=== PATIENT | female | born 1965 | race American Indian/Alaskan Native ===

== ENCOUNTER 2017-03-11 05:36 | Emergency (ER) | payer SELFPAY ==
[2017-03-11] MEDS ORDERED: ASPIRIN PO ONE (05:58)
[2017-03-11 07:24] LABS: Basophils # (Auto) 0.1 K/mm3 (0.0-0.1); Basophils % (Auto) 0.8 % (0.0-1.8); Eosinophils # (Auto) 0.2 K/mm3 (0.0-0.4); Eosinophils % (Auto) 2.5 % (0.0-4.3); Hematocrit 42.2 % (30.3-42.9); Hemoglobin 14.1 gm/dl (10.1-14.3); Lymphocytes # (Auto) 2.9 K/mm3 (1.2-5.4); Lymphocytes % (Auto) 41.5 % (13.4-35.0); Mean Corpuscular HGB Conc 34 % (30-34); Mean Corpuscular Hemoglobin 28 pg (28-32); Mean Corpuscular Volume 83 fl (79-97); Monocytes # (Auto) 0.4 K/mm3 (0.0-0.8); Monocytes % (Auto) 5.7 % (0.0-7.3); Platelet Count 347 K/mm3 (140-440); Red Blood Count 5.12 M/mm3 (3.65-5.03); Red Cell Distribution Width 14.8 % (13.2-15.2)
[2017-03-11 07:43] LABS: BUN/Creatinine Ratio 22; Blood Urea Nitrogen 20 mg/dL (7-17); Calcium 9.4 mg/dL (8.4-10.2); Hemolysis Index 9
[2017-03-11] MEDS ORDERED: ZOFRAN IV ONE (09:21)
[2017-03-11] MEDS ORDERED: MORPHINE IV ONE (09:21)
--- NOTE | 2017-03-11 09:27 | Emergency Department Report ---
HPI - General Chief Complaint: Chest Pain Time Seen by Provider: 03/11/17 09:20 - HPI HPI: [facility] [place] The patient is a 51-year-old female presenting with a chief complaint chest pain. The patient states 8 hours ago surgical sharp left-sided chest pain associated with shortness of breath, diaphoresis and pleurisy. Patient denies nausea or vomiting. The patient states 8 days ago she took a 17 [address] from [place] to [place]. The patient has a history of breast cancer and last received chemotherapy one month ago. Patient states she's never had a cardiac catheterization Location: Left chest Duration: 8 hours Quality: Sharp Severity: 11/27 Modifying factors: [see above] Context: [see above] Mode of transportation: [not driving] ED Past Medical Hx - Past Medical History Previous Medical History?: Yes Hx Hypertension: Yes Hx of Cancer: Yes (breast) - Surgical History Past Surgical History?: Yes Hx Appendectomy: Yes - Family History Family history: no significant - Social History Smoking Status: Never Smoker Substance Use Type: None (denies illicit drug use) - Medications Home Medications: Home Medications Medication Instructions Recorded Confirmed Last Taken Type ALPRAZolam [Xanax TAB] 2 mg PO BID 03/11/17 03/11/17 Unknown History Doxepin HCl 100 mg PO HS 03/11/17 03/11/17 Unknown History Gabapentin [Neurontin] 800 mg PO TID 03/11/17 03/11/17 Unknown History Meloxicam 15 mg PO QDAY 03/11/17 03/11/17 Unknown History Venlafaxine HCl [Venlafaxine ER] 150 mg PO QDAY 03/11/17 03/11/17 Unknown History Zolpidem [Ambien] 10 mg PO QHS 03/11/17 03/11/17 Unknown History cloNIDine [Catapres] 0.1 mg PO BID 03/11/17 03/11/17 Unknown History hydrOXYzine PAMOATE [Vistaril] 50 mg PO TID 03/11/17 03/11/17 Unknown History oxyCODONE /ACETAMINOPHEN [Percocet 1 tab PO Q8HR PRN 03/11/17 03/11/17 Unknown History 5/325] ED Review of Systems ROS: Stated complaint: CHEST PAIN,HIGH BLOOD PRESSURE Other details as noted in HPI Constitutional: diaphoresis Respiratory: shortness of breath Cardiovascular: chest pain Gastrointestinal: denies: nausea, vomiting Physical Exam - Physical Exam Vital Signs: Vital Signs 03/11/17 05:53 Temperature 98.2 F Pulse Rate 71 Respiratory 18 Rate Blood Pressure 182/93 O2 Sat by Pulse 99 Oximetry Physical Exam: GENERAL: The patient is well-developed well-nourished female sitting in chair not appearing to be in acute distress HEENT: Normocephalic. Atraumatic. Extraocular motions are intact. Patient has moist mucous membranes. NECK: Trachea midline CHEST/LUNGS: Clear to auscultation. There is no respiratory distress noted. HEART/CARDIOVASCULAR: Regular. There is no tachycardia. There is no gallop rub or murmur. ABDOMEN: Abdomen is soft, nontender. Patient has normal bowel sounds. There is no abdominal distention. SKIN: There is no rash. There is no edema. There is no diaphoresis. NEURO: The patient is awake, alert, and oriented. The patient is cooperative. The patient has normal speech MUSCULOSKELETAL: There is no evidence of acute injury. ED Course Vital Signs 03/11/17 05:53 Temperature 98.2 F Pulse Rate 71 Respiratory 18 Rate Blood Pressure 182/93 O2 Sat by Pulse 99 Oximetry - Reevaluation(s) Reevaluation #1: 03/11/17 11:57 Informed by nursing (Maria Eugenia) that the patient has walked out of the hospital ED Medical Decision Making - Lab Data Result diagrams: 03/11/17 07:03 03/11/17 07:03 Laboratory Tests 03/11/17 03/11/17 03/11/17 06:00 07:03 07:03 WBC 6.9 RBC 5.12 H Hgb 14.1 Hct 42.2 MCV 83 MCH 28 MCHC 34 RDW 14.8 Plt Count 347 Lymph % (Auto) 41.5 H [place] % (Auto) 5.7 Eos % (Auto) 2.5 Baso % (Auto) 0.8 Lymph # 2.9 [place] # 0.4 Eos # 0.2 Baso # 0.1 Seg Neutrophils % 49.5 Seg Neutrophils # 3.4 Sodium 143 Potassium 3.2 L Chloride 102.5 Carbon Dioxide 26 Anion Gap 18 BUN 20 H Creatinine 0.9 Estimated GFR > 60 BUN/Creatinine Ratio 22 Glucose 127 H Calcium 9.4 Troponin T < 0.010 < 0.010 - EKG Data -: EKG Interpreted by Me EKG shows normal: sinus rhythm Rate: normal - EKG Data When compared to previous EKG there are: previous EKG unavailable Interpretation: nonspecific ST-T wave daniel (T-wave inversions in leads 2, 3, aVF , V4, V5) - Differential Diagnosis PE, ACS, pneumonia, pleurisy Critical care attestation.: If time is entered above; I have spent that time in minutes in the direct care of this critically ill patient, excluding procedure time. ED Disposition Clinical Impression: Chest pain, Hypokalemia Disposition: ELOPED Is pt being admited?: Yes Does the pt Need Aspirin: Yes Condition: Undetermined Instructions: Chest Pain (ED) Referrals: PRIMARY CARE,MD [Primary Care Provider] - 3-5 Days
[2017-03-11 10:44] VITALS: BP 173/90
[2017-03-11] MEDS ORDERED: NITRO-BID 2% TP ONE (11:08)
[2017-03-11] MEDS ORDERED: K-DUR PO ONE (11:59)
== END 2017-03-11 11:40 | disposition left against medical advice (07) ==
LOC: ED 05:36
DX: R07.89 Other chest pain (principal); E87.6 Hypokalemia; I10 Essential (primary) hypertension; C50.919 Malignant neoplasm of unspecified site of unspecified female breast; C79.9 Secondary malignant neoplasm of unspecified site; Z90.49 Acquired absence of other specified parts of digestive tract
CPT/HCPCS: 36415; 80048; 84484; 85025; 93005; 93010; 96374; J2270; J2405

== ENCOUNTER 2017-03-27 22:21 | Inpatient (IN) | payer SELFPAY ==
[2017-03-27] MEDS ORDERED: NACL 0.9% 1000 ML 1,000 ML IV ONE ×2 (22:44→22:45)
[2017-03-27 23:39] LABS: Basophils % (Auto) 0.3 % (0.0-1.8); Eosinophils % (Auto) 0.2 % (0.0-4.3); Hematocrit 41.9 % (30.3-42.9); Lymphocytes # (Auto) 1.9 K/mm3 (1.2-5.4); Lymphocytes % (Auto) 30.9 % (13.4-35.0); Mean Corpuscular HGB Conc 33 % (30-34); Mean Corpuscular Hemoglobin 28 pg (28-32); Mean Corpuscular Volume 82 fl (79-97); Monocytes # (Auto) 0.4 K/mm3 (0.0-0.8); Monocytes % (Auto) 6.2 % (0.0-7.3); Platelet Count 335 K/mm3 (140-440); Red Cell Distribution Width 15.6 % (13.2-15.2)
[2017-03-27 23:52] LABS: Alanine Aminotransferase 14 units/L (7-56); Albumin 4.3 g/dL (3.9-5); BUN/Creatinine Ratio 14; Blood Urea Nitrogen 18 mg/dL (7-17); Calcium 10.2 mg/dL (8.4-10.2); Hemolysis Index 0
[2017-03-27 23:54] LABS: Creatine Kinase MB 2.7 ng/mL (0.0-4.0)
[2017-03-27] MEDS ORDERED: PERCOCET 5/325 PO ONE (23:58)
[2017-03-28] LABS: INR 0.92 (0.87-1.13); Partial Thromboplastin Time 25.9 Sec. (24.2-36.6)
[2017-03-28] MEDS ORDERED: K-DUR PO ONE (00:14)
--- NOTE | 2017-03-28 01:09 | Emergency Department Report ---
ED General Adult HPI - General Chief complaint: Chest Pain Stated complaint: SYNCOPE Time Seen by Provider: 03/27/17 23:46 Source: EMS Mode of arrival: Stretcher Limitations: Other - History of Present Illness Initial comments: 51-year-old female with a past medical history of breast cancer diagnosed in 2013 and hypertension presents to the hospital with complaints of generalized body aches which included chest and back pain. Patient ran out of all her medications weeks ago. Include her BP medications, pain medication, and Xanax. Patient states she has been on Xanax daily for at least 2 years. Patient recently relocated here from [place] and does not have any current physician. She last received chemotherapy for breast cancer in January and does not have a local oncologist. Patient presented here in March 11 with similar complaints as per patient left prior to completion of evaluation and treatment. Patient denies cough, fever, abdominal pain, dysuria. Poor by mouth intake reported. Severity scale (0 -10): 10 - Related Data Home Medications Medication Instructions Recorded Confirmed Last Taken ALPRAZolam [Xanax TAB] 2 mg PO BID 03/11/17 03/11/17 Unknown Doxepin HCl 100 mg PO HS 03/11/17 03/11/17 Unknown Gabapentin [Neurontin] 800 mg PO TID 03/11/17 03/11/17 Unknown Meloxicam 15 mg PO QDAY 03/11/17 03/11/17 Unknown Venlafaxine HCl [Venlafaxine ER] 150 mg PO QDAY 03/11/17 03/11/17 Unknown Zolpidem [Ambien] 10 mg PO QHS 03/11/17 03/11/17 Unknown cloNIDine [Catapres] 0.1 mg PO BID 03/11/17 03/11/17 Unknown hydrOXYzine PAMOATE [Vistaril] 50 mg PO TID 03/11/17 03/11/17 Unknown oxyCODONE /ACETAMINOPHEN [Percocet 1 tab PO Q8HR PRN 03/11/17 03/11/17 Unknown 5/325] Allergies Allergy/AdvReac Type Severity Reaction Status Date / Time No Known Allergies Allergy Verified 03/11/17 05:57 ED Review of Systems ROS: Stated complaint: SYNCOPE Other details as noted in HPI Comment: All other systems reviewed and negative Other: Constitutional: No fevers chills Eyes: No eye pain visual changes ENT: No ear pain or throat pain Neck: Denies pain Respiratory: Denies cough wheezing shortness of breath Cardiovascular: Denies palpitations, syncope GI: Denies abdominal pain, nausea, vomiting, diarrhea : Denies dysuria Musculoskeletal: as per hpi Skin: Denies rash, lesions, erythema Neurologic: Denies headache, numbness, weakness Psychiatric: Denies suicidal ideation, hallucinations ED Past Medical Hx - Past Medical History Previous Medical History?: Yes Hx Hypertension: Yes Hx of Cancer: Yes (breast) - Surgical History Hx Appendectomy: Yes - Social History Smoking Status: Never Smoker Substance Use Type: None (denies illicit drug use) - Medications Home Medications: Home Medications Medication Instructions Recorded Confirmed Last Taken Type ALPRAZolam [Xanax TAB] 2 mg PO BID 03/11/17 03/11/17 Unknown History Doxepin HCl 100 mg PO HS 03/11/17 03/11/17 Unknown History Gabapentin [Neurontin] 800 mg PO TID 03/11/17 03/11/17 Unknown History Meloxicam 15 mg PO QDAY 03/11/17 03/11/17 Unknown History Venlafaxine HCl [Venlafaxine ER] 150 mg PO QDAY 03/11/17 03/11/17 Unknown History Zolpidem [Ambien] 10 mg PO QHS 03/11/17 03/11/17 Unknown History cloNIDine [Catapres] 0.1 mg PO BID 03/11/17 03/11/17 Unknown History hydrOXYzine PAMOATE [Vistaril] 50 mg PO TID 03/11/17 03/11/17 Unknown History oxyCODONE /ACETAMINOPHEN [Percocet 1 tab PO Q8HR PRN 03/11/17 03/11/17 Unknown History 5/325] ED Physical Exam - General Limitations: Other - Other Other exam information: General: Alert Head exam: Atraumatic, normocephalic Eyes exam: Normal appearance ENT: Moist mucous membrane, normal oropharynx Neck exam: Normal inspection, full range of motion, no meningismus nontender Respiratory exam: Clear to auscultation bilateral, no wheezes, rales, crackles. Anterior chest wall tenderness Cardiovascular: Tachycardic regular rhythm Abdomen: Soft, nondistended, and nontender, with normal bowel sounds, no rebound, or guarding Extremity: Full range of motion normal inspection no deformity, no calf tenderness or edema Back: Normal Inspection, full range of motion, generalized back tenderness Neurologic: Alert, oriented x3, cranial nerves intact, no motor or sensory deficit Psychiatric: Patient appears to be in distress secondary appear writhing around in the bed Skin: Warm, dry, intact ED Course Vital Signs 03/27/17 03/27/17 03/27/17 22:33 22:45 23:00 Temperature Pulse Rate 111 H 101 H 101 H Respiratory 24 20 19 Rate Blood Pressure 91/52 75/41 O2 Sat by Pulse 90 Oximetry 03/27/17 03/27/17 03/27/17 23:15 23:17 23:30 Temperature Pulse Rate 102 H 97 H 99 H Respiratory 19 20 16 Rate Blood Pressure 80/49 80/49 78/56 O2 Sat by Pulse 97 98 96 Oximetry 03/27/17 03/28/17 03/28/17 23:45 00:00 00:15 Temperature Pulse Rate 100 H 97 H 96 H Respiratory 22 16 19 Rate Blood Pressure 100/41 105/47 111/54 O2 Sat by Pulse 98 99 96 Oximetry 03/28/17 03/28/17 03/28/17 00:31 00:53 00:59 Temperature 99.9 F H Pulse Rate 90 Respiratory 15 Rate Blood Pressure 107/53 111/73 O2 Sat by Pulse 98 100 Oximetry 03/28/17 01:00 Temperature Pulse Rate Respiratory Rate Blood Pressure 125/61 O2 Sat by Pulse 95 Oximetry - Reevaluation(s) Reevaluation #1: 03/28/17 01:36 Patient feeling better after Percocet and vitals improved after IV fluids ED Medical Decision Making - Lab Data Result diagrams: 03/27/17 22:58 03/27/17 22:58 Lab Results 03/27/17 03/27/17 03/27/17 Range/Units 22:58 22:58 22:58 WBC 6.2 (4.5-11.0) K/mm3 RBC 5.10 H (3.65-5.03) M/mm3 Hgb 14.0 (10.1-14.3) gm/dl Hct 41.9 (30.3-42.9) % MCV 82 (79-97) fl MCH 28 (28-32) pg MCHC 33 (30-34) % RDW 15.6 H (13.2-15.2) % Plt Count 335 (140-440) K/mm3 Lymph % (Auto) 30.9 (13.4-35.0) % [place] % (Auto) 6.2 (0.0-7.3) % Eos % (Auto) 0.2 (0.0-4.3) % Baso % (Auto) 0.3 (0.0-1.8) % Lymph # 1.9 (1.2-5.4) K/mm3 [place] # 0.4 (0.0-0.8) K/mm3 Eos # 0.0 (0.0-0.4) K/mm3 Baso # 0.0 (0.0-0.1) K/mm3 Seg Neutrophils % 62.4 (40.0-70.0) % Seg Neutrophils # 3.8 (1.8-7.7) K/mm3 PT 12.8 (12.2-14.9) Sec. INR 0.92 (0.87-1.13) APTT 25.9 (24.2-36.6) Sec. VBG pH (7.320-7.420) Sodium 143 (137-145) mmol/L Potassium 2.8 L* (3.6-5.0) mmol/L Chloride 96.7 L (98-107) mmol/L Carbon Dioxide 24 (22-30) mmol/L Anion Gap 25 mmol/L BUN 18 H (7-17) mg/dL Creatinine 1.3 H (0.7-1.2) mg/dL Estimated GFR 52 ml/min BUN/Creatinine Ratio 14 % Glucose 201 H (65-100) mg/dL Lactic Acid (0.7-2.0) mmol/L Calcium 10.2 (8.4-10.2) mg/dL Magnesium 2.00 (1.7-2.3) mg/dL Total Bilirubin 0.40 (0.1-1.2) mg/dL AST 13 (5-40) units/L ALT 14 (7-56) units/L Alkaline Phosphatase 123 (35-129) units/L Total Creatine Kinase (30-135) units/L CK-MB (CK-2) (0.0-4.0) ng/mL CK-MB (CK-2) Rel Index (0-4) Troponin T (0.00-0.029) ng/mL Total Protein 7.9 (6.3-8.2) g/dL Albumin 4.3 (3.9-5) g/dL Albumin/Globulin Ratio 1.2 % Plasma/Serum Alcohol (0-0.07) % 03/27/17 03/27/17 03/27/17 Range/Units 22:58 22:58 22:58 WBC (4.5-11.0) K/mm3 RBC (3.65-5.03) M/mm3 Hgb (10.1-14.3) gm/dl Hct (30.3-42.9) % MCV (79-97) fl MCH (28-32) pg MCHC (30-34) % RDW (13.2-15.2) % Plt Count (140-440) K/mm3 Lymph % (Auto) (13.4-35.0) % [place] % (Auto) (0.0-7.3) % Eos % (Auto) (0.0-4.3) % Baso % (Auto) (0.0-1.8) % Lymph # (1.2-5.4) K/mm3 [place] # (0.0-0.8) K/mm3 Eos # (0.0-0.4) K/mm3 Baso # (0.0-0.1) K/mm3 Seg Neutrophils % (40.0-70.0) % Seg Neutrophils # (1.8-7.7) K/mm3 PT (12.2-14.9) Sec. INR (0.87-1.13) APTT (24.2-36.6) Sec. VBG pH 7.454 H (7.320-7.420) Sodium (137-145) mmol/L Potassium (3.6-5.0) mmol/L Chloride (98-107) mmol/L Carbon Dioxide (22-30) mmol/L Anion Gap mmol/L BUN (7-17) mg/dL Creatinine (0.7-1.2) mg/dL Estimated GFR ml/min BUN/Creatinine Ratio % Glucose (65-100) mg/dL Lactic Acid 2.60 H* (0.7-2.0) mmol/L Calcium (8.4-10.2) mg/dL Magnesium (1.7-2.3) mg/dL Total Bilirubin (0.1-1.2) mg/dL AST (5-40) units/L ALT (7-56) units/L Alkaline Phosphatase (35-129) units/L Total Creatine Kinase (30-135) units/L CK-MB (CK-2) (0.0-4.0) ng/mL CK-MB (CK-2) Rel Index (0-4) Troponin T (0.00-0.029) ng/mL Total Protein (6.3-8.2) g/dL Albumin (3.9-5) g/dL Albumin/Globulin Ratio % Plasma/Serum Alcohol < 0.01 (0-0.07) % 03/27/17 Range/Units 22:58 WBC (4.5-11.0) K/mm3 RBC (3.65-5.03) M/mm3 Hgb (10.1-14.3) gm/dl Hct (30.3-42.9) % MCV (79-97) fl MCH (28-32) pg MCHC (30-34) % RDW (13.2-15.2) % Plt Count (140-440) K/mm3 Lymph % (Auto) (13.4-35.0) % [place] % (Auto) (0.0-7.3) % Eos % (Auto) (0.0-4.3) % Baso % (Auto) (0.0-1.8) % Lymph # (1.2-5.4) K/mm3 [place] # (0.0-0.8) K/mm3 Eos # (0.0-0.4) K/mm3 Baso # (0.0-0.1) K/mm3 Seg Neutrophils % (40.0-70.0) % Seg Neutrophils # (1.8-7.7) K/mm3 PT (12.2-14.9) Sec. INR (0.87-1.13) APTT (24.2-36.6) Sec. VBG pH (7.320-7.420) Sodium (137-145) mmol/L Potassium (3.6-5.0) mmol/L Chloride (98-107) mmol/L Carbon Dioxide (22-30) mmol/L Anion Gap mmol/L BUN (7-17) mg/dL Creatinine (0.7-1.2) mg/dL Estimated GFR ml/min BUN/Creatinine Ratio % Glucose (65-100) mg/dL Lactic Acid (0.7-2.0) mmol/L Calcium (8.4-10.2) mg/dL Magnesium (1.7-2.3) mg/dL Total Bilirubin (0.1-1.2) mg/dL AST (5-40) units/L ALT (7-56) units/L Alkaline Phosphatase (35-129) units/L Total Creatine Kinase 71 (30-135) units/L CK-MB (CK-2) 2.7 (0.0-4.0) ng/mL CK-MB (CK-2) Rel Index 3.8 (0-4) Troponin T < 0.010 (0.00-0.029) ng/mL Total Protein (6.3-8.2) g/dL Albumin (3.9-5) g/dL Albumin/Globulin Ratio % Plasma/Serum Alcohol (0-0.07) % - EKG Data -: EKG Interpreted by [place] EKG shows normal: sinus rhythm, axis (17), QRS complexes (100), ST-T waves ( diffuse t wave inv) Rate: normal - EKG Data When compared to previous EKG there are: no significant change - Radiology Data Radiology results: report reviewed Chest x-ray: - Medical Decision Making Denies body aches Cause unclear Possible withdrawal from medications pt received po percocet Hypotension Cause unclear but corrected with IV fluids Possible dehydration due to poor by mouth intake Mild lactic acid elevation with repeat pending Patient has been cultured Urine results pending Chest pain Reproducible on exam Initial troponin negative Diffuse T-wave inversions similar to previous in February Patient also has hypokalemia and received by mouth potassium Worsening renal function noted compared to March 11 Hospitalist and for inflammation - Differential Diagnosis viral syndrome, infection, dehydration, DE, drug withdrawal, sepsis Critical Care Time: No Critical care attestation.: If time is entered above; I have spent that time in minutes in the direct care of this critically ill patient, excluding procedure time. ED Disposition Clinical Impression: Hypotension, Mild renal insufficiency, Hypokalemia, Breast cancer, Chest pain, Body aches Disposition: DC-09 OP ADMIT IP TO THIS HOSP Is pt being admited?: Yes Condition: Stable Time of Disposition: 01:34 (Dr Holbrook/hosp)
[2017-03-28 01:42] LABS: Amphetamine Screen,Urine PRESUMPTIVE NEGATIVE; Cannabinoid Screen,Urine PRESUMPTIVE NEGATIVE; Opiate Screen,Urine PRESUMPTIVE NEGATIVE
[2017-03-28 01:45] LABS: Bacteria,Urine 1+ /HPF (Negative); Bilirubin,Urine SM (Negative); Blood,Urine NEG (Negative); Calcium Oxalate Crystals,Urine 1+; Color,Urine Amber (Yellow); Hyaline Casts,Urine 7 /LPF; Mucus,Urine 3+ /HPF; Nitrite,Urine NEG (Negative); Urobilinogen,Urine < 2.0 mg/dL (<2.0)
[2017-03-28 02:04] LABS: Benzodiazepines Screen,Urine PRESUMPTIVE POSITIVE; Cocaine Screen,Urine PRESUMPTIVE POSITIVE; Methadone Screen,Urine PRESUMPTIVE POSITIVE
[2017-03-28 02:54] LABS: Ictotest,Urine Negative (Negative)
[2017-03-28] MEDS ORDERED: ZOFRAN IV PRN (04:29)
[2017-03-28] MEDS ORDERED: D5NS 1,000 ML IV SCH (05:00)
[2017-03-28] MEDS ORDERED: PERCOCET 5/325 PO PRN (05:33)
--- NOTE | 2017-03-28 05:46 | History and Physical Report ---
History of Present Illness Date of examination: 03/28/17 Date of admission: 03/28/17 01:37 Chief complaint: Generalized body pain History of present illness: 51-year-old -Maced[place] female with past medical history significant for hypertension, breast CA on chemotherapy, bipolar disorder presented to the emergency department complaining of chest, and back pain which has been chronic. She said the pain is 10 out of 10, sharp, no alleviating or aggravating factors. Patient was presented to ED in February in left AMA without evaluation and treatment. Patient ran out of medication 2 weeks ago which include Xanax. Patient moved from [place] and didn't have primary care physician and oncologist in [place]. Patient was very sleepy at the time of examination. In the emergency department blood pressure was low, and had lactic acidosis with hypokalemia and admitted for further management. UDS was done and positive for methadone, PCP, benzo, cocaine. REVIEW OF SYSTEMS: GENERAL: no weight change, no fatigue, no fever HEAD: no head ache EYES: no blurry vision, no acute visual loss EARS: no hearing loss, no discharge, no earache NOSE: no stuffiness, no sneezing, no discharge MOUTH, THROAT AND NECK: no bleeding gums, no sore throat, no swollen neck CARDIAC: no palpitations, no dyspnea on exertion, no orthopnea, no PND, no edema , + chest pain RESPIRATORY: no shortness of breath, no wheeze, no cough, no sputum, no hemoptysis, no asthma GI: no decreased appetite, no nausea, no vomiting, no dysphagia, no diarrhea, no constipation, no abdominal pain URINARY: no change in frequency, no urgency, no polyuria, no hematuria, no incontinence MUSCULOSKELETAL: no muscle weakness, no pain, no joint stiffness NEUROLOGIC: no loss of sensation/numbness, no tingling, no tremors, no weakness/ paralysis HEMATOLOGIC: no anemia, no easy bruising SKIN: no rashes ENDOCRINE: no heat/cold intolerance, no polyuria, no polydipsia, no thyroid problems, no diabetes PSYCHIATRIC: no anxiety, no depression, no suicidal ideations Past History Past Medical History: cancer, hypertension, other (bipolar disorder) Past Surgical History: No surgical history Social history: full code. denies: smoking, alcohol abuse, prescription drug abuse, IV drug use Family history: no significant family history Medications and Allergies Allergies Allergy/AdvReac Type Severity Reaction Status Date / Time No Known Allergies Allergy Verified 03/11/17 05:57 Home Medications Medication Instructions Recorded Confirmed Last Taken Type ALPRAZolam [Xanax TAB] 2 mg PO BID 03/11/17 03/28/17 Unknown History Doxepin HCl 100 mg PO HS 03/11/17 03/28/17 Unknown History Gabapentin [Neurontin] 800 mg PO TID 03/11/17 03/28/17 Unknown History Meloxicam 15 mg PO QDAY 03/11/17 03/28/17 Unknown History Venlafaxine HCl [Venlafaxine ER] 150 mg PO QDAY 03/11/17 03/28/17 Unknown History Zolpidem [Ambien] 10 mg PO QHS 03/11/17 03/28/17 Unknown History cloNIDine [Catapres] 0.1 mg PO BID 03/11/17 03/28/17 Unknown History hydrOXYzine PAMOATE [Vistaril] 50 mg PO TID 03/11/17 03/28/17 Unknown History oxyCODONE /ACETAMINOPHEN [Percocet 1 tab PO Q8HR PRN 03/11/17 03/28/17 Unknown History 5/325] Active Meds: Active Medications Doxepin HCl (Sinequan) 100 mg PO QHS DESIREE Gabapentin (Neurontin) 800 mg PO TID [facility] Dextrose/Sodium Chloride (D5ns) 1,000 mls @ 100 mls/hr IV DIRECT DESIREE Last Admin: 03/28/17 04:54 Dose: 100 mls/hr Ceftriaxone Sodium 1 gm/ (Sodium Chloride) 20 mls @ 20 mls/10 min IV Q24HR [facility] PRN Reason: Protocol Ondansetron HCl (Zofran) 4 mg IV Q4H PRN PRN Reason: Nausea And Vomiting Oxycodone/Acetaminophen (Percocet 5/325) 1 tab PO Q6H PRN PRN Reason: Pain, Moderate (4-6) Venlafaxine HCl (Effexor Xr) 150 mg PO QDAY [facility] Exam - Physical Exam Narrative exam: Not in cardiopulmonary distress. The patient appeared well nourished and normally developed. Vital signs as documented. Head exam is unremarkable. Reproducible chest pain No scleral icterus . Neck is without jugular venous distension, thyromegaly, or carotid bruits. Lungs are clear to auscultation. Cardiac exam reveals regular rate and Rhythm. First and second heart sounds normal. No murmurs, rubs or gallops. Abdominal exam reveals normal bowel sounds, no masses, no organomegaly and no aortic enlargement. Extremities are nonedematous and both femoral and pedal pulses are normal. SILVERER: Alert and oriented 3. No focal weakness. - Constitutional Vitals: Temp Pulse Resp BP Pulse Ox 98.2 F 76 18 107/53 95 03/28/17 03:55 03/28/17 03:55 03/28/17 03:55 03/28/17 03:55 03/28/17 03:55 Results - Labs CBC & Chem 7: 03/27/17 22:58 03/27/17 22:58 Labs: Laboratory Last Values WBC 6.2 K/mm3 (4.5-11.0) 03/27/17 22:58 RBC 5.10 M/mm3 (3.65-5.03) H 03/27/17 22:58 Hgb 14.0 gm/dl (10.1-14.3) 03/27/17 22:58 Hct 41.9 % (30.3-42.9) 03/27/17 22:58 MCV 82 fl (79-97) 03/27/17 22:58 MCH 28 pg (28-32) 03/27/17 22:58 MCHC 33 % (30-34) 03/27/17 22:58 RDW 15.6 % (13.2-15.2) H 03/27/17 22:58 Plt Count 335 K/mm3 (140-440) 03/27/17 22:58 Lymph % (Auto) 30.9 % (13.4-35.0) 03/27/17 22:58 [place] % (Auto) 6.2 % (0.0-7.3) 03/27/17 22:58 Eos % (Auto) 0.2 % (0.0-4.3) 03/27/17 22:58 Baso % (Auto) 0.3 % (0.0-1.8) 03/27/17 22:58 Lymph # 1.9 K/mm3 (1.2-5.4) 03/27/17 22:58 [place] # 0.4 K/mm3 (0.0-0.8) 03/27/17 22:58 Eos # 0.0 K/mm3 (0.0-0.4) 03/27/17 22:58 Baso # 0.0 K/mm3 (0.0-0.1) 03/27/17 22:58 Seg Neutrophils % 62.4 % (40.0-70.0) 03/27/17 22:58 Seg Neutrophils # 3.8 K/mm3 (1.8-7.7) 03/27/17 22:58 PT 12.8 Sec. (12.2-14.9) 03/27/17 22:58 INR 0.92 (0.87-1.13) 03/27/17 22:58 APTT 25.9 Sec. (24.2-36.6) 03/27/17 22:58 VBG pH 7.454 (7.320-7.420) H 03/27/17 22:58 Sodium 143 mmol/L (137-145) 03/27/17 22:58 Potassium 2.8 mmol/L (3.6-5.0) L* 03/27/17 22:58 Chloride 96.7 mmol/L (98-107) L 03/27/17 22:58 Carbon Dioxide 24 mmol/L (22-30) 03/27/17 22:58 Anion Gap 25 mmol/L 03/27/17 22:58 BUN 18 mg/dL (7-17) H 03/27/17 22:58 Creatinine 1.3 mg/dL (0.7-1.2) H 03/27/17 22:58 Estimated GFR 52 ml/min 03/27/17 22:58 BUN/Creatinine Ratio 14 % 03/27/17 22:58 Glucose 201 mg/dL (65-100) H 03/27/17 22:58 Lactic Acid 1.00 mmol/L (0.7-2.0) 03/28/17 02:06 Calcium 10.2 mg/dL (8.4-10.2) 03/27/17 22:58 Magnesium 2.00 mg/dL (1.7-2.3) 03/27/17 22:58 Total Bilirubin 0.40 mg/dL (0.1-1.2) 03/27/17 22:58 AST 13 units/L (5-40) 03/27/17 22:58 ALT 14 units/L (7-56) 03/27/17 22:58 Alkaline Phosphatase 123 units/L (35-129) 03/27/17 22:58 Total Creatine Kinase 71 units/L (30-135) 03/27/17 22:58 CK-MB (CK-2) 2.7 ng/mL (0.0-4.0) 03/27/17 22:58 CK-MB (CK-2) Rel Index 3.8 (0-4) 03/27/17 22:58 Troponin T < 0.010 ng/mL (0.00-0.029) 03/27/17 22:58 Total Protein 7.9 g/dL (6.3-8.2) 03/27/17 22:58 Albumin 4.3 g/dL (3.9-5) 03/27/17 22:58 Albumin/Globulin Ratio 1.2 % 03/27/17 22:58 Urine Color [place] (Yellow) 03/27/17 01:12 Urine Turbidity Clear (Clear) 03/27/17 01:12 Urine pH 5.0 (5.0-7.0) 03/27/17 01:12 Ur Specific [place] 1.027 (1.003-1.030) 03/27/17 01:12 Urine Protein 100 mg/dl mg/dL (Negative) 03/27/17 01:12 Urine Glucose (UA) 50 mg/dL (Negative) 03/27/17 01:12 Urine Ketones Tr mg/dL (Negative) 03/27/17 01:12 Urine Blood Neg (Negative) 03/27/17 01:12 Urine Nitrite Neg (Negative) 03/27/17 01:12 Urine Bilirubin Sm (Negative) 03/27/17 01:12 Urine Ictotest Negative (Negative) 03/27/17 01:12 Urine Urobilinogen < 2.0 mg/dL (<2.0) 03/27/17 01:12 Ur Leukocyte Esterase Tr (Negative) 03/27/17 01:12 Urine WBC (Auto) 31.0 /HPF (0.0-6.0) H 03/27/17 01:12 Urine RBC (Auto) 4.0 /HPF (0.0-6.0) 03/27/17 01:12 U Epithel Cells (Auto) 30.0 /HPF (0-13.0) H 03/27/17 01:12 Urine Bacteria (Auto) 1+ /HPF (Negative) 03/27/17 01:12 Calcium Oxalate Crystal 1+ 03/27/17 01:12 Hyaline Casts 7 /LPF 03/27/17 01:12 Urine Mucus 3+ /HPF 03/27/17 01:12 Urine Opiates Screen Presumptive negative 03/28/17 01:12 Urine Methadone Screen Presumptive positive 03/28/17 01:12 Ur Barbiturates Screen Presumptive negative 03/28/17 01:12 Ur Phencyclidine Scrn Presumptive positive 03/28/17 01:12 Ur Amphetamines Screen Presumptive negative 03/28/17 01:12 U Benzodiazepines Scrn Presumptive positive 03/28/17 01:12 Urine Cocaine Screen Presumptive positive 03/28/17 01:12 U Marijuana (THC) Screen Presumptive negative 03/28/17 01:12 Drugs of Abuse Note Disclamer 03/28/17 01:12 Plasma/Serum Alcohol < 0.01 % (0-0.07) 03/27/17 22:58 Hypokalemia Assessment and Plan Assessment and plan: Hypotension Breast cancer Hypokalemia Polysubstance abuse Bipolar disorder Lactic acidosis UTI - Patient is given IV fluids and blood pressure is normalized, held blood pressure medications, electrolytes were repleted and will check BMP, patient is on Rocephin for UTI - Oncology consult placed to continue her management breast cancer - Resume psychiatric medications - Patient counseled about cessation of using recreational drugs DVT prophylaxis - On Lovenox Disposition - Admit to medical floor. Advance Directives: Yes VTE prophylaxis?: Chemical Plan of care discussed with patient/family: Yes
[2017-03-28] MEDS: PERCOCET 5/325 PO PRN ×2 (06:18→20:14)
[2017-03-28 07:22] LABS: Calcium 8.9 mg/dL (8.4-10.2)
--- NOTE | 2017-03-28 07:40 | XRay Report ---
FINAL REPORT EXAM: XR CHEST 1V AP HISTORY: cp TECHNIQUE: AP portable view(s) of the chest obtained. PRIORS: None. FINDINGS: No mediastinal shift. Cardiac silhouette is not enlarged. Left chest port tip terminates near the superior cavoatrial junction. No pneumothorax, effusion, or focal pulmonary opacity identified. No acute skeletal findings. IMPRESSION: No acute pulmonary finding identified.
[2017-03-28] MEDS ORDERED: NON-FORMULARY (Gabapentin [Neurontin] 800 MG) PO SCH (08:00)
--- NOTE | 2017-03-28 08:41 | Progress Note ---
Assessment and Plan Assessment and plan: Hypokalemia - KCl 40 mEq PO Qday x 2 UTI - continue Rocephin Hypotension - 1L D5 1/2 NS @ 125 mL/hr - hold anti-hypertensives - Electrolytes stabilized Breast cancer - Heme/Onc following - Plan to posey CT, bone scan, and MRI brain for staging - consult breast surgery - obtain OSH medical records to confirm completion of roshan adjuvant therapy with TCH DVT prophylaxis - On Lovenox Disposition - Discharge home upon symptom resolution Subjective Date of service: 03/28/17 Principal diagnosis: UTI, Breast Cancer Interval history: Patient seen and examined today. She reported chest pain. Objective - Constitutional Vitals: Vital Signs - 12hr 03/27/17 03/27/17 03/27/17 22:33 22:45 23:00 Temperature Pulse Rate 111 H 101 H 101 H Respiratory 24 20 19 Rate Blood Pressure 91/52 75/41 O2 Sat by Pulse 90 Oximetry 03/27/17 03/27/17 03/27/17 23:15 23:17 23:30 Temperature Pulse Rate 102 H 97 H 99 H Respiratory 19 20 16 Rate Blood Pressure 80/49 80/49 78/56 O2 Sat by Pulse 97 98 96 Oximetry 03/27/17 03/28/17 03/28/17 23:45 00:00 00:15 Temperature Pulse Rate 100 H 97 H 96 H Respiratory 22 16 19 Rate Blood Pressure 100/41 105/47 111/54 O2 Sat by Pulse 98 99 96 Oximetry 03/28/17 03/28/17 03/28/17 00:31 00:53 00:59 Temperature 99.9 F H Pulse Rate 90 Respiratory 15 Rate Blood Pressure 107/53 111/73 O2 Sat by Pulse 98 100 Oximetry 03/28/17 03/28/17 03/28/17 01:00 01:15 01:30 Temperature Pulse Rate 85 Respiratory 17 Rate Blood Pressure 125/61 118/55 111/48 O2 Sat by Pulse 95 98 97 Oximetry 03/28/17 03/28/17 03/28/17 01:45 02:01 02:15 Temperature Pulse Rate 89 84 83 Respiratory 16 17 16 Rate Blood Pressure 110/55 92/47 93/48 O2 Sat by Pulse 98 97 100 Oximetry 03/28/17 03/28/17 03/28/17 02:30 02:45 03:00 Temperature Pulse Rate 81 82 80 Respiratory 16 16 16 Rate Blood Pressure 92/49 110/57 99/52 O2 Sat by Pulse 94 94 94 Oximetry 03/28/17 03/28/17 03/28/17 03:15 03:21 03:55 Temperature 98.2 F Pulse Rate 80 81 76 Respiratory 17 17 18 Rate Blood Pressure 96/48 96/48 107/53 O2 Sat by Pulse 96 95 Oximetry General appearance: Present: no acute distress, well-nourished - Neck Neck: supple, normal ROM - Respiratory Respiratory effort: normal Respiratory: bilateral: CTA - Cardiovascular Rhythm: regular Heart Sounds: Present: S1 & S2. Absent: gallop, rub Extremities: pulses intact, No edema, normal color, Full ROM - Gastrointestinal General gastrointestinal: Present: soft, non-tender, non-distended, normal bowel sounds - Integumentary Integumentary: clear, warm, dry - Musculoskeletal Musculoskeletal: 1, strength equal bilaterally - Neurologic Neurologic: moves all extremities - Labs CBC & Chem 7: 03/27/17 22:58 03/28/17 06:16 Labs: Abnormal lab results 03/27/17 03/27/17 03/27/17 Range/Units 01:12 22:58 22:58 RBC 5.10 H (3.65-5.03) M/mm3 RDW 15.6 H (13.2-15.2) % VBG pH (7.320-7.420) Potassium 2.8 L* (3.6-5.0) mmol/L Chloride 96.7 L (98-107) mmol/L BUN 18 H (7-17) mg/dL Creatinine 1.3 H (0.7-1.2) mg/dL Glucose 201 H (65-100) mg/dL Lactic Acid (0.7-2.0) mmol/L Urine WBC (Auto) 31.0 H (0.0-6.0) /HPF U Epithel Cells (Auto) 30.0 H (0-13.0) /HPF 03/27/17 03/27/17 03/28/17 Range/Units 22:58 22:58 06:16 RBC (3.65-5.03) M/mm3 RDW (13.2-15.2) % VBG pH 7.454 H (7.320-7.420) Potassium 3.3 L (3.6-5.0) mmol/L Chloride (98-107) mmol/L BUN 21 H (7-17) mg/dL Creatinine 1.3 H (0.7-1.2) mg/dL Glucose 209 H (65-100) mg/dL Lactic Acid 2.60 H* (0.7-2.0) mmol/L Urine WBC (Auto) (0.0-6.0) /HPF U Epithel Cells (Auto) (0-13.0) /HPF
[2017-03-28] MEDS ORDERED: VENLAFAXINE HCL 150 MG PO SCH (10:00)
[2017-03-28] MEDS ORDERED: NON-FORMULARY (Alprazolam [Xanax Tab] 2 MG) PO SCH (10:00)
--- NOTE | 2017-03-28 10:48 | Hem/Onc Consultation ---
History of Present Illness - Reason for Consult Consult date: 03/28/17 - History of Present Illness 51 year old lady who is overall not a good historian. relocated from [facility] without any of her medications and presented to ER after she felt weak. HAd breast cancer diagnosed and treated with Taxotere, cytoxan and herceptin for 3 months and then off all treatments because she decided to relocate. She has no records with her. States cancer was not metastatic and was only on right side. Past History Past Medical History: cancer, hypertension, other (bipolar disorder) Past Surgical History: No surgical history Social history: full code. denies: smoking, alcohol abuse, prescription drug abuse, IV drug use Family history: no significant family history Medications and Allergies Allergies Allergy/AdvReac Type Severity Reaction Status Date / Time No Known Allergies Allergy Verified 03/11/17 05:57 Home Medications Medication Instructions Recorded Confirmed Last Taken Type ALPRAZolam [Xanax TAB] 2 mg PO BID 03/11/17 03/28/17 Unknown History Doxepin HCl 100 mg PO HS 03/11/17 03/28/17 Unknown History Gabapentin [Neurontin] 800 mg PO TID 03/11/17 03/28/17 Unknown History Meloxicam 15 mg PO QDAY 03/11/17 03/28/17 Unknown History Venlafaxine HCl [Venlafaxine ER] 150 mg PO QDAY 03/11/17 03/28/17 Unknown History Zolpidem [Ambien] 10 mg PO QHS 03/11/17 03/28/17 Unknown History cloNIDine [Catapres] 0.1 mg PO BID 03/11/17 03/28/17 Unknown History hydrOXYzine PAMOATE [Vistaril] 50 mg PO TID 03/11/17 03/28/17 Unknown History oxyCODONE /ACETAMINOPHEN [Percocet 1 tab PO Q8HR PRN 03/11/17 03/28/17 Unknown History 5/325] Active Meds: Active Medications Alprazolam (Xanax) 2 mg PO BID DESIREE Doxepin HCl (Sinequan) 100 mg PO QHS DESIREE Enoxaparin Sodium (Lovenox) 40 mg SUB-Q QDAY@2200 DESIREE Gabapentin (Neurontin) 800 mg PO TID [facility] Dextrose/Sodium Chloride (D5ns) 1,000 mls @ 100 mls/hr IV DIRECT DESIREE Last Admin: 03/28/17 04:54 Dose: 100 mls/hr Ceftriaxone Sodium 1 gm/ (Sodium Chloride) 20 mls @ 20 mls/10 min IV Q24HR [facility]IREE PRN Reason: Protocol Ondansetron HCl (Zofran) 4 mg IV Q4H PRN PRN Reason: Nausea And Vomiting Oxycodone/Acetaminophen (Percocet 5/325) 1 tab PO Q6H PRN PRN Reason: Pain, Moderate (4-6) Last Admin: 03/28/17 06:18 Dose: 1 tab Venlafaxine HCl (Effexor Xr) 150 mg PO QDAY DESIREE Review of Systems All systems: negative (pain and breast acncer) Exam - Constitutional Vitals: Last Vital Signs Temp 98.7 F 03/28/17 07:48 Pulse 65 03/28/17 07:48 Resp 20 03/28/17 07:48 BP 119/57 03/28/17 07:48 Pulse Ox 98 03/28/17 07:48 Pain Intensity (0-10): 4/10 General appearance: no acute distress - EENT Eyes: PERRL ENT: hearing intact Lymph node exam: negative cervical - Neck Neck: supple - Respiratory Respiratory effort: Positive: normal Respiratory: bilateral: CTA - Breasts Breasts: right: change in shape (right breast retracted. Per patient it is improved.) - Cardiovascular Rhythm: regular Heart Sounds: Present: S1 & S2 - Gastrointestinal General gastrointestinal: Present: soft - Musculoskeletal Musculoskeletal: strength equal bilaterally - Neurologic Neurologic: CNII-XII intact Results - Labs lab Results: Laboratory Results - last 24 hr 03/27/17 03/27/17 03/27/17 01:12 22:58 22:58 WBC 6.2 RBC 5.10 H Hgb 14.0 Hct 41.9 MCV 82 MCH 28 MCHC 33 RDW 15.6 H Plt Count 335 Lymph % (Auto) 30.9 [place] % (Auto) 6.2 Eos % (Auto) 0.2 Baso % (Auto) 0.3 Lymph # 1.9 [place] # 0.4 Eos # 0.0 Baso # 0.0 Seg Neutrophils % 62.4 Seg Neutrophils # 3.8 PT 12.8 INR 0.92 APTT 25.9 VBG pH Sodium Potassium Chloride Carbon Dioxide Anion Gap BUN Creatinine Estimated GFR BUN/Creatinine Ratio Glucose Lactic Acid Calcium Magnesium Total Bilirubin AST ALT Alkaline Phosphatase Total Creatine Kinase CK-MB (CK-2) CK-MB (CK-2) Rel Index Troponin T Total Protein Albumin Albumin/Globulin Ratio Urine Color [place] Urine Turbidity Clear Urine pH 5.0 Ur Specific [place] 1.027 Urine Protein 100 mg/dl Urine Glucose (UA) 50 Urine Ketones Tr Urine Blood Neg Urine Nitrite Neg Urine Bilirubin Sm Urine Ictotest Negative Urine Urobilinogen < 2.0 Ur Leukocyte Esterase Tr Urine WBC (Auto) 31.0 H Urine RBC (Auto) 4.0 U Epithel Cells (Auto) 30.0 H Urine Bacteria (Auto) 1+ Calcium Oxalate Crystal 1+ Hyaline Casts 7 Urine Mucus 3+ Urine Opiates Screen Urine Methadone Screen Ur Barbiturates Screen Ur Phencyclidine Scrn Ur Amphetamines Screen U Benzodiazepines Scrn Urine Cocaine Screen U Marijuana (THC) Screen Drugs of Abuse Note Plasma/Serum Alcohol 03/27/17 03/27/17 03/27/17 22:58 22:58 22:58 WBC RBC Hgb Hct MCV MCH MCHC RDW Plt Count Lymph % (Auto) [place] % (Auto) Eos % (Auto) Baso % (Auto) Lymph # [place] # Eos # Baso # Seg Neutrophils % Seg Neutrophils # PT INR APTT VBG pH 7.454 H Sodium 143 Potassium 2.8 L* Chloride 96.7 L Carbon Dioxide 24 Anion Gap 25 BUN 18 H Creatinine 1.3 H Estimated GFR 52 BUN/Creatinine Ratio 14 Glucose 201 H Lactic Acid 2.60 H* Calcium 10.2 Magnesium 2.00 Total Bilirubin 0.40 AST 13 ALT 14 Alkaline Phosphatase 123 Total Creatine Kinase CK-MB (CK-2) CK-MB (CK-2) Rel Index Troponin T Total Protein 7.9 Albumin 4.3 Albumin/Globulin Ratio 1.2 Urine Color Urine Turbidity Urine pH Ur Specific [place] Urine Protein Urine Glucose (UA) Urine Ketones Urine Blood Urine Nitrite Urine Bilirubin Urine Ictotest Urine Urobilinogen Ur Leukocyte Esterase Urine WBC (Auto) Urine RBC (Auto) U Epithel Cells (Auto) Urine Bacteria (Auto) Calcium Oxalate Crystal Hyaline Casts Urine Mucus Urine Opiates Screen Urine Methadone Screen Ur Barbiturates Screen Ur Phencyclidine Scrn Ur Amphetamines Screen U Benzodiazepines Scrn Urine Cocaine Screen U Marijuana (THC) Screen Drugs of Abuse Note Plasma/Serum Alcohol 03/27/17 03/27/17 03/28/17 22:58 22:58 01:12 WBC RBC Hgb Hct MCV MCH MCHC RDW Plt Count Lymph % (Auto) [place] % (Auto) Eos % (Auto) Baso % (Auto) Lymph # [place] # Eos # Baso # Seg Neutrophils % Seg Neutrophils # PT INR APTT VBG pH Sodium Potassium Chloride Carbon Dioxide Anion Gap BUN Creatinine Estimated GFR BUN/Creatinine Ratio Glucose Lactic Acid Calcium Magnesium Total Bilirubin AST ALT Alkaline Phosphatase Total Creatine Kinase 71 CK-MB (CK-2) 2.7 CK-MB (CK-2) Rel Index 3.8 Troponin T < 0.010 Total Protein Albumin Albumin/Globulin Ratio Urine Color Urine Turbidity Urine pH Ur Specific [place] Urine Protein Urine Glucose (UA) Urine Ketones Urine Blood Urine Nitrite Urine Bilirubin Urine Ictotest Urine Urobilinogen Ur Leukocyte Esterase Urine WBC (Auto) Urine RBC (Auto) U Epithel Cells (Auto) Urine Bacteria (Auto) Calcium Oxalate Crystal Hyaline Casts Urine Mucus Urine Opiates Screen Presumptive negative Urine Methadone Screen Presumptive positive Ur Barbiturates Screen Presumptive negative Ur Phencyclidine Scrn Presumptive positive Ur Amphetamines Screen Presumptive negative U Benzodiazepines Scrn Presumptive positive Urine Cocaine Screen Presumptive positive U Marijuana (THC) Screen Presumptive negative Drugs of Abuse Note Disclamer Plasma/Serum Alcohol < 0.01 03/28/17 03/28/17 02:06 06:16 WBC RBC Hgb Hct MCV MCH MCHC RDW Plt Count Lymph % (Auto) [place] % (Auto) Eos % (Auto) Baso % (Auto) Lymph # [place] # Eos # Baso # Seg Neutrophils % Seg Neutrophils # PT INR APTT VBG pH Sodium 144 Potassium 3.3 L Chloride 103.4 Carbon Dioxide 25 Anion Gap 19 BUN 21 H Creatinine 1.3 H Estimated GFR 52 BUN/Creatinine Ratio 16 Glucose 209 H Lactic Acid 1.00 Calcium 8.9 Magnesium Total Bilirubin AST ALT Alkaline Phosphatase Total Creatine Kinase CK-MB (CK-2) CK-MB (CK-2) Rel Index Troponin T Total Protein Albumin Albumin/Globulin Ratio Urine Color Urine Turbidity Urine pH Ur Specific [place] Urine Protein Urine Glucose (UA) Urine Ketones Urine Blood Urine Nitrite Urine Bilirubin Urine Ictotest Urine Urobilinogen Ur Leukocyte Esterase Urine WBC (Auto) Urine RBC (Auto) U Epithel Cells (Auto) Urine Bacteria (Auto) Calcium Oxalate Crystal Hyaline Casts Urine Mucus Urine Opiates Screen Urine Methadone Screen Ur Barbiturates Screen Ur Phencyclidine Scrn Ur Amphetamines Screen U Benzodiazepines Scrn Urine Cocaine Screen U Marijuana (THC) Screen Drugs of Abuse Note Plasma/Serum Alcohol Assessment and Plan - Patient Problems (1) Breast cancer Current Visit: Yes Status: Acute Plan to address problem: States she completed roshan adjuvant therapy with TCH and is now awaiting surgery. Will do posey CT and bone scan and MRI brain to stage her completely. Will get breast surgery input. Advised patient to obtain her medical records for review. Will follow.
[2017-03-28] MEDS: XANAX PO SCH ×2 (11:54→22:14)
[2017-03-28] MEDS: EFFEXOR XR PO SCH (11:55)
[2017-03-28] MEDS: NEURONTIN PO SCH ×4 (15:15→20:14)
[2017-03-28] MEDS: cefTRIAXone 1 GM in NACL 0.9% 20 ML IV SCH (15:17)
[2017-03-28] MEDS: D5/0.45NS 1,000 ML IV SCH (18:55)
--- NOTE | 2017-03-28 19:06 | Magnetic Resonance Report ---
FINAL REPORT EXAM: MR BRAIN WO/W CON HISTORY: breast cancer and passing out TECHNIQUE: MRI brain with and without contrast PRIORS: None. FINDINGS: There is normal signal throughout the brain parenchyma. No evidence for brain edema pattern or mass effect. Ventricles and sulci are within normal limits. No evidence for acute intra-axial or extra-axial hemorrhage. On postcontrast imaging no areas of abnormal enhancement observed. No evidence for meningeal thickening No evidence for acute restriction on diffusion-weighted study. Brainstem and posterior fossa structures are unremarkable. IMPRESSION: Negative. No focal abnormality identified
[2017-03-28] MEDS: K-DUR PO SCH (19:25)
[2017-03-28] MEDS ORDERED: NACL ONE (21:08)
[2017-03-28] MEDS ORDERED: DOXEPIN HCL 100 MG PO SCH (22:00)
--- NOTE | 2017-03-28 22:02 | Cat Scan Report ---
FINAL REPORT EXAM: CT CHEST W CON HISTORY: brain mets TECHNIQUE: CT chest with intravenous contrast PRIORS: No prior studies are submitted for comparison FINDINGS: No evidence of mediastinal pathologic lymph node enlargement Heart and great vessels are unremarkable. The aorta is normal in caliber. No focal pulmonary infiltrate identified. No pleural fluid collection seen. No acute pulmonary abnormality noted. No pulmonary mass identified Visualized portion of the upper abdomen demonstrates no acute change. IMPRESSION: Negative. No focal abnormality identified in the chest.
--- NOTE | 2017-03-28 22:08 | Cat Scan Report ---
FINAL REPORT EXAM: CT ABDOMEN PELVIS W CON HISTORY: brain mets TECHNIQUE: CT abdomen and pelvis with oral and intravenous contrast PRIORS: None. FINDINGS: No acute abnormality identified in the lung bases. No focal abnormality identified within the liver parenchyma. The spleen demonstrates normal size and attenuation. No pancreatic abnormalities seen. The kidneys demonstrate symmetric contrast enhancement. There is a 4.4 centimeter right renal cyst There is a 2.7 centimeter left renal cyst. Adrenal glands are unremarkable. No evidence of hydronephrosis. Abdominal aorta is normal in caliber. No pathologically enlarged lymph nodes are identified. No signs of free fluid or free air No evidence of small bowel dilatation. Colon is nondistended. No pericolonic inflammatory changes are observed. Urinary bladder is unremarkable. IMPRESSION: Bilateral upper pole renal cysts Otherwise no acute abnormality seen
[2017-03-28] MEDS: SINEquan PO SCH (22:12)
[2017-03-28] MEDS: LOVENOX SUB-Q SCH (22:14)
[2017-03-29] MEDS: D5/0.45NS 1,000 ML IV SCH ×2 (04:22→23:33)
[2017-03-29] MEDS: PERCOCET 5/325 PO PRN ×2 (07:58→20:50)
--- NOTE | 2017-03-29 08:24 | Progress Note ---
Assessment and Plan Assessment and plan: Hypokalemia - KCl 40 mEq PO Qday x 2 Recheck potassium level UTI - continue Rocephin Hypotension - 1L D5 1/2 NS @ 125 mL/hr - hold anti-hypertensives - Electrolytes stabilized Breast cancer - Heme/Onc following - Plan to posey CT, bone scan, and MRI brain for staging - consult breast surgery - obtain OSH medical records to confirm completion of roshan adjuvant therapy with TCH DVT prophylaxis - On Lovenox Disposition - Discharge home upon symptom resolution Subjective Date of service: 03/29/17 Principal diagnosis: UTI, Breast Cancer Interval history: Patient seen and examined today. No new complaints. Objective - Exam Narrative Exam: Constitutional: Well-nourished well-developed. In no distress Head: Normocephalic atraumatic Eyes: Pupils are equal round and reactive to light Nose: No enlarged turbinates, no septal deviation. Mouth: Moist mucous membranes. Neck: Supple no thyromegaly. No bruit. No JVD Heart: Regular rate and rhythm, S1-S2 abnormal. No rubs murmurs or gallop Lungs: Clear to auscultation bilaterally no rales or rhonchi Abdomen: Soft, nontender. Bowel sound are present. Extremities: No edema no cyanosis and no clubbing. Neuro: Alert oriented Oriented x3. No focal sensory or motor deficit. Skin: No rashes no hyperemic spots Psychiatry: Euthymic. Calm. - Constitutional Vitals: Vital Signs - 12hr 03/28/17 23:24 Temperature 98.7 F Pulse Rate 86 Respiratory 17 Rate Blood Pressure 137/78 O2 Sat by Pulse 95 Oximetry - Labs CBC & Chem 7: 03/27/17 22:58 03/28/17 06:16
[2017-03-29] MEDS: EFFEXOR XR PO SCH (10:36)
[2017-03-29] MEDS: XANAX PO SCH ×2 (10:37→23:35)
[2017-03-29] MEDS: K-DUR PO SCH (10:37)
[2017-03-29] MEDS: NEURONTIN PO SCH ×3 (10:59→20:49)
[2017-03-29] MEDS: cefTRIAXone 1 GM in NACL 0.9% 20 ML IV SCH (11:02)
--- NOTE | 2017-03-29 12:25 | Consultation ---
History of Present Illness - Reason for Consult Consult date: 03/29/17 Reason for consult: Mental Health Evaluation Requesting physician: ODALIS EPPERSON - Chief Complaint Chief complaint: "I need to stop using drugs" - History of Present Psychiatric Illness 51-year-old female with a past medical history of breast cancer diagnosed in 2013 and hypertension presents to the hospital with complaints of generalized body aches which included chest and back pain. Psychiatry was consulted to see patient, she stated having an hx of bipolar do. Today the patient is calm and cooperative during the assessment. This patient is new the [place] area (since Feb 2017) coming from [place]. She could not tell me when she was dx with bipolar do. She stated that she took Seroquel in the past, but stopped because she gained lots of weight. She stated a long hx of recreational drug use for over 30 years. She stated that she started taking Methodone for pain (breast cancer)/(heroin user) in 2013. She stated that she does not want to stop taking methodone, because her pain is so "bad" in her chest area. She did state that she want to stop using recreational drugs when asked. She was not aware that she was positive for multiple recreational drugs when informed. She stated, " The cocaine had to be laced." She denies being depressed or having any manic episodes in the past. She denies sleep disturbance and a poor appetite. She did acknowledge worrying a lot about her medical issue (breast cancer) and how she can stop using recreational drugs. She stated taking Xanax for anxiety for a while. She denies SI/HI's and AVH's. She does admit having racing thoughts "sometimes." Medications and Allergies Allergies Allergy/AdvReac Type Severity Reaction Status Date / Time No Known Allergies Allergy Verified 03/11/17 05:57 Home Medications Medication Instructions Recorded Confirmed Last Taken Type ALPRAZolam [Xanax TAB] 2 mg PO BID 03/11/17 03/28/17 Unknown History Doxepin HCl 100 mg PO HS 03/11/17 03/28/17 Unknown History Gabapentin [Neurontin] 800 mg PO TID 03/11/17 03/28/17 Unknown History Meloxicam 15 mg PO QDAY 03/11/17 03/28/17 Unknown History Venlafaxine HCl [Venlafaxine ER] 150 mg PO QDAY 03/11/17 03/28/17 Unknown History Zolpidem [Ambien] 10 mg PO QHS 03/11/17 03/28/17 Unknown History cloNIDine [Catapres] 0.1 mg PO BID 03/11/17 03/28/17 Unknown History hydrOXYzine PAMOATE [Vistaril] 50 mg PO TID 03/11/17 03/28/17 Unknown History oxyCODONE /ACETAMINOPHEN [Percocet 1 tab PO Q8HR PRN 03/11/17 03/28/17 Unknown History 5/325] Active Meds: Active Medications Alprazolam (Xanax) 2 mg PO BID [facility] Last Admin: 03/29/17 10:37 Dose: 2 mg Doxepin HCl (Sinequan) 100 mg PO QHS [facility] Last Admin: 03/28/17 22:12 Dose: 100 mg Enoxaparin Sodium (Lovenox) 40 mg SUB-Q QDAY@2200 [facility] Last Admin: 03/28/17 22:14 Dose: 40 mg Gabapentin (Neurontin) 800 mg PO TID [facility] Last Admin: 03/29/17 10:59 Dose: 800 mg Ceftriaxone Sodium 1 gm/ (Sodium Chloride) 20 mls @ 20 mls/10 min IV Q24HR [facility] PRN Reason: Protocol Last Admin: 03/29/17 11:02 Dose: 20 mls/10 min Dextrose/Sodium Chloride (D5/0.45ns) 1,000 mls @ 125 mls/hr IV DIRECT [facility] Last Admin: 03/29/17 04:22 Dose: 125 mls/hr Ondansetron HCl (Zofran) 4 mg IV Q4H PRN PRN Reason: Nausea And Vomiting Oxycodone/Acetaminophen (Percocet 5/325) 1 tab PO Q6H PRN PRN Reason: Pain, Moderate (4-6) Last Admin: 03/29/17 07:58 Dose: 1 tab Potassium Chloride (K-Dur) 40 meq PO QDAY [facility] Stop: 03/30/17 15:59 Last Admin: 03/29/17 10:37 Dose: 40 meq Venlafaxine HCl (Effexor Xr) 150 mg PO QDAY [facility] Last Admin: 03/29/17 10:36 Dose: 150 mg Past psychiatric history - Past Medical History Past Medical History: hypertension, other (Breast Cancer) - past Psychiatric treatment and history psychiatric treatment history: Seen outpatient for psy services. Denies a fam psy hx. - Social History Social history: lives with family Mental Status Exam - Vital signs Last Vital Signs Temp 97.7 F 03/29/17 08:02 Pulse 72 03/29/17 08:02 Resp 18 03/29/17 08:02 BP 139/76 03/29/17 08:02 Pulse Ox 97 03/29/17 08:02 - Exam Narrative exam: MSE: Appearance: calm, cooperative Behavior: regular eye contact Speech: regular rate and tone Mood: "okay" Affect: congruent to mood Thought Process: linear Thought Content: denies SI/HI's and AVH's Motor Activity: lying in bed Cognition: A/O x3 Insight: appropriate Judgment: appropriate Results Result Diagrams: 03/27/17 22:58 03/28/17 06:16 All other labs normal. Assessment and Plan Assessment and plan: Impression: Hx of Bipolar DO per the patient. EVE. Substance Use DO. Today the patient is calm and cooperative during the assessment. The patient has a long hx of recreational drug use. She cannot ID medication she took for Bipolar DO other than Seroquel. No acute withdrawals noted (opioid). Recommendation/Plan: Continue her home medications (Effexor/Xanx/Doxephin). If the Effexor/Xanax are abruptly stopped, patient can experience withdrawals. Eventually, the patient need to be tapered of benzos, she has a long hx of recreational drug use. Patient given outpatient psy/rehab services for [facility]. Monitor the patient for opioid withdrawals.
--- NOTE | 2017-03-29 14:02 | Consultation ---
History of Present Illness Consult date: 03/28/17 Reason for consult: other (Right breast cancer) Requesting physician: SUMAN SIM Chief complaint: Right breast cancer - History of present illness History of present illness: This is a 51 year old lady recently admitted for chest pain with personal history of right breast cancer of the upper outer quadrant. She reports she was diagnosed with right breast cancer in 2012 and has been on treatment since. Patient recently moved here and has not had any breast cancer treatments in [place]. She does recall on chemotherapy with [facility]. She reports a family history of breast cancer in her aunt and patient reports she underwent genetic testing with negative findings. She reports a palpable rigth breast mass that has decreased in size. Past History Past Medical History: hypertension, other (Breast Cancer) Past Surgical History: No surgical history Social history: lives with family Family history: no significant family history Medications and Allergies Allergies Allergy/AdvReac Type Severity Reaction Status Date / Time No Known Allergies Allergy Verified 03/11/17 05:57 Home Medications Medication Instructions Recorded Confirmed Last Taken Type ALPRAZolam [Xanax TAB] 2 mg PO BID 03/11/17 03/28/17 Unknown History Doxepin HCl 100 mg PO HS 03/11/17 03/28/17 Unknown History Gabapentin [Neurontin] 800 mg PO TID 03/11/17 03/28/17 Unknown History Meloxicam 15 mg PO QDAY 03/11/17 03/28/17 Unknown History Venlafaxine HCl [Venlafaxine ER] 150 mg PO QDAY 03/11/17 03/28/17 Unknown History Zolpidem [Ambien] 10 mg PO QHS 03/11/17 03/28/17 Unknown History cloNIDine [Catapres] 0.1 mg PO BID 03/11/17 03/28/17 Unknown History hydrOXYzine PAMOATE [Vistaril] 50 mg PO TID 03/11/17 03/28/17 Unknown History oxyCODONE /ACETAMINOPHEN [Percocet 1 tab PO Q8HR PRN 03/11/17 03/28/17 Unknown History 5/325] Active Meds: Active Medications Alprazolam (Xanax) 2 mg PO BID [facility] Last Admin: 03/29/17 10:37 Dose: 2 mg Doxepin HCl (Sinequan) 100 mg PO QHS [facility] Last Admin: 03/28/17 22:12 Dose: 100 mg Enoxaparin Sodium (Lovenox) 40 mg SUB-Q QDAY@2200 [facility] Last Admin: 03/28/17 22:14 Dose: 40 mg Gabapentin (Neurontin) 800 mg PO TID [facility] Last Admin: 03/29/17 10:59 Dose: 800 mg Ceftriaxone Sodium 1 gm/ (Sodium Chloride) 20 mls @ 20 mls/10 min IV Q24HR [facility] PRN Reason: Protocol Last Admin: 03/29/17 11:02 Dose: 20 mls/10 min Dextrose/Sodium Chloride (D5/0.45ns) 1,000 mls @ 125 mls/hr IV DIRECT [facility] Last Admin: 03/29/17 04:22 Dose: 125 mls/hr Ondansetron HCl (Zofran) 4 mg IV Q4H PRN PRN Reason: Nausea And Vomiting Oxycodone/Acetaminophen (Percocet 5/325) 1 tab PO Q6H PRN PRN Reason: Pain, Moderate (4-6) Last Admin: 03/29/17 07:58 Dose: 1 tab Potassium Chloride (K-Dur) 40 meq PO QDAY [facility] Stop: 03/30/17 15:59 Last Admin: 03/29/17 10:37 Dose: 40 meq Venlafaxine HCl (Effexor Xr) 150 mg PO QDAY [facility] Last Admin: 03/29/17 10:36 Dose: 150 mg Review of Systems All systems: negative - Breasts other (right breast cancer mass of the upper outer quadrant) Exam Vital Signs Pulse Resp 111 H 24 03/27/17 22:33 03/27/17 22:33 - General physical appearance Positive: well developed, well nourished, no distress - Eyes Positive: PERRL, normal occular movement - ENT Positive: normal pinna, normal nares, normal mucosa, no hearing loss, no congestion - Neck Positive: no masses, no bruits, trachea midline, no lymphadectomy, no venous distension - Respiratory Positive: normal expansion - Cardiovascular Rhythm: regular - Extremities Extremities: no ischemia, No edema, normal temperature, normal color Peripheral Pulses: within normal limits - Breasts Breasts: other (right breast with asymmetry with dimpling of the 12:00 NAC with skin invagination and palpable right breast mass at dayanara 10:30 position 4-5 cm from the nippel fo 2-3 cm-hard fixed mass; questionable palpable rigth axillary lymph node; left chest wall port in place) - Abdomen Abdomen: Present: soft - Genitourinary Female Genitourinary: deferred - Neurologic Neurologic: alert and oriented to time, place and person, motor strength and sensation are grossly intact, CN II-XII intact - Psychiatric Psychiatric: appropriate mood/affect, cooperative Results - Labs 03/30/17 04:29 03/30/17 04:29 Assessment and Plan This is a 51 year old lady with right breast cancer of the upper outer quadrant. Patient not a good historian and requesting pain medicine. Will have to obtain outside medical records to known stage of patient's breast cancer and history of diagnosis and treatment. Once d/c, pt will f/u with me and I will obtain mammogram, breast ultrasound and breast MRI. Thank you for this consult. - Patient Problems (1) Breast cancer in female Current Visit: Yes Status: Acute Qualifiers: Breast location: upper outer quadrant of breast Estrogen receptor status: unspecified Laterality: right Qualified Code(s): C50.411 - Malignant neoplasm of upper-outer quadrant of right female breast
[2017-03-29] MEDS: SINEquan PO SCH (23:36)
[2017-03-29] MEDS: LOVENOX SUB-Q SCH (23:37)
[2017-03-30 05:02] LABS: Basophils % (Auto) 0.2 % (0.0-1.8); Eosinophils # (Auto) 0.1 K/mm3 (0.0-0.4); Eosinophils % (Auto) 2.2 % (0.0-4.3); Hematocrit 35.5 % (30.3-42.9); Hemoglobin 11.9 gm/dl (10.1-14.3); Lymphocytes # (Auto) 2.8 K/mm3 (1.2-5.4); Lymphocytes % (Auto) 50.5 % (13.4-35.0); Mean Corpuscular HGB Conc 34 % (30-34); Mean Corpuscular Hemoglobin 28 pg (28-32); Mean Corpuscular Volume 83 fl (79-97); Monocytes # (Auto) 0.4 K/mm3 (0.0-0.8); Monocytes % (Auto) 7.5 % (0.0-7.3); Platelet Count 297 K/mm3 (140-440)
[2017-03-30 05:43] LABS: Alanine Aminotransferase 10 units/L (7-56); Albumin 3.7 g/dL (3.9-5); BUN/Creatinine Ratio 11; Blood Urea Nitrogen 9 mg/dL (7-17); Calcium 8.9 mg/dL (8.4-10.2); Hemolysis Index 6
[2017-03-30] MEDS: EFFEXOR XR PO SCH (10:24)
[2017-03-30] MEDS: K-DUR PO SCH (10:24)
[2017-03-30] MEDS: NEURONTIN PO SCH ×3 (10:25→21:44)
[2017-03-30] MEDS: XANAX PO SCH (10:25)
[2017-03-30] MEDS: PERCOCET 5/325 PO PRN ×2 (10:35→21:45)
[2017-03-30] MEDS: cefTRIAXone 1 GM in NACL 0.9% 20 ML IV SCH (10:36)
[2017-03-30] MEDS: D5/0.45NS 1,000 ML IV SCH (10:37)
--- NOTE | 2017-03-30 15:25 | Progress Note ---
Subjective - Reason for Consult Consult date: 03/30/17 Reason for consult: follow up - Chief Complaint Chief complaint: 51-year-old female with a past medical history of breast cancer diagnosed in 2013 and hypertension presented to the hospital with complaints of generalized body aches which included chest and back pain. Psychiatry was consulted to see patient, she stated having an hx of bipolar do. She did not describe a history of michelle or hypomania on her initial interview. She is taking effexor xr 150mg qam and doxepin at bedtime. She denies SI/HI's and AVH's. She was observed lying supine and snoring. She responded to her name. She fell asleep several times during the interview. She asked about more medicine. Mental Status Exam - Vital signs Last Vital Signs Temp 97.9 F 03/30/17 07:52 Pulse 70 03/30/17 07:52 Resp 18 03/30/17 07:52 BP 145/82 03/30/17 07:52 Pulse Ox 98 03/30/17 07:52 - Exam Narrative exam: MSE: Appearance: calm, frequently fell asleep during the interview Behavior: regular eye contact Speech: regular rate and tone Mood: "okay" Affect: congruent to mood Thought Process:limited in scope Thought Content: denies SI/HI's and AVH's Motor Activity: lying in bed Cognition: A/O x3 Insight: appropriate Judgment: appropriate Assessment and Plan Impression: Hx of Bipolar DO per the patient. EVE. Substance Use DO. Today the patient is calm and cooperative during the assessment. The patient has a long hx of recreational drug use. Recommendation/Plan: Continue her home medications (Effexor/Doxepin. If the Effexor/Xanax are abruptly stopped, patient can experience withdrawals. Patient given outpatient psy/rehab services for [facility]. Recommend benzo detox due to respiratory depression associated with concurrent use of benzos and opiates.
--- NOTE | 2017-03-30 16:14 | Progress Note ---
Assessment and Plan - Patient Problems (1) UTI (urinary tract infection) Current Visit: Yes Status: Acute Plan to address problem: At present we'll continue Rocephin. Appears to be responding to current antibiotic coverage. Afebrile. No dysuria no flank pain. (2) Hypokalemia Current Visit: Yes Status: Acute Plan to address problem: Resolved we'll follow up potassium. (3) Bipolar 1 disorder Current Visit: Yes Status: Acute (4) Breast cancer in female Current Visit: Yes Status: Acute Qualifiers: Breast location: upper outer quadrant of breast Estrogen receptor status: unspecified Laterality: right Qualified Code(s): C50.411 - Malignant neoplasm of upper-outer quadrant of right female breast Plan to address problem: Patient to follow with Dr. Hidalgo for surgical correction as outpatient. Patient with negative MRI brain negative CT chest. Has been staged (5) Mild renal insufficiency Current Visit: Yes Status: Acute Plan to address problem: Prerenal azotemia History Interval history: Patient states pain was not very well controlled. After discussion with psychiatry patient was very lethargic after medication. Recommended benzo and opioid detox. Patient was alert with me speaking with family. No new concerns. Did complain of chest discomfort. She has a long history of chest discomfort from breasts CA. Hospitalist Physical - Constitutional Vitals: Temp Pulse Resp BP Pulse Ox 97.9 F 70 18 145/82 98 03/30/17 07:52 03/30/17 07:52 03/30/17 07:52 03/30/17 07:52 03/30/17 07:52 General appearance: Present: no acute distress, well-nourished - EENT Eyes: Present: PERRL, EOM intact ENT: hearing intact, clear oral mucosa, dentition normal - Neck Neck: Present: supple, normal ROM - Respiratory Respiratory: bilateral: CTA (mild wheezing bilaterally) - Cardiovascular Rhythm: regular - Extremities Extremities: no ischemia, pulses intact, pulses symmetrical, No edema, normal temperature Peripheral Pulses: within normal limits - Abdominal General gastrointestinal: soft, non-tender, non-distended - Psychiatric Psychiatric: appropriate mood/affect, other (I agree patient somewhat lethargic) - Neurologic Neurologic: moves all extremities Results - Labs CBC & Chem 7: 03/30/17 04:29 03/30/17 04:29 Labs: Laboratory Last Values WBC 5.5 K/mm3 (4.5-11.0) 03/30/17 04: RBC 4.30 M/mm3 (3.65-5.03) 03/30/17 04:29 Hgb 11.9 gm/dl (10.1-14.3) 03/30/17 04: Hct 35.5 % (30.3-42.9) D 03/30/17 04: MCV 83 fl (79-97) 03/30/17 04: MCH 28 pg (28-32) 03/30/17 04: MCHC 34 % (30-34) 03/30/17 04: RDW 16.0 % (13.2-15.2) H 03/30/17 04:29 Plt Count 297 K/mm3 (140-440) 03/30/17 04:29 Lymph % (Auto) 50.5 % (13.4-35.0) H 03/30/17 04: [place] % (Auto) 7.5 % (0.0-7.3) H 03/30/17 04:29 Eos % (Auto) 2.2 % (0.0-4.3) 03/30/17 04: Baso % (Auto) 0.2 % (0.0-1.8) 03/30/17 04: Lymph # 2.8 K/mm3 (1.2-5.4) 03/30/17 04: [place] # 0.4 K/mm3 (0.0-0.8) 03/30/17 04: Eos # 0.1 K/mm3 (0.0-0.4) 03/30/17 04: Baso # 0.0 K/mm3 (0.0-0.1) 03/30/17 04: Seg Neutrophils % 39.6 % (40.0-70.0) L 03/30/17 04: Seg Neutrophils # 2.2 K/mm3 (1.8-7.7) 03/30/17 04:29 PT 12.8 Sec. (12.2-14.9) 03/27/17 22:58 INR 0.92 (0.87-1.13) 03/27/17 22:58 APTT 25.9 Sec. (24.2-36.6) 03/27/17 22:58 VBG pH 7.454 (7.320-7.420) H 03/27/17 22:58 Sodium 144 mmol/L (137-145) 03/30/17 04:29 Potassium 3.4 mmol/L (3.6-5.0) L 03/30/17 04:29 Chloride 105.5 mmol/L (98-107) 03/30/17 04:29 Carbon Dioxide 22 mmol/L (22-30) 03/30/17 04:29 Anion Gap 20 mmol/L 03/30/17 04:29 BUN 9 mg/dL (7-17) 03/30/17 04:29 Creatinine 0.8 mg/dL (0.7-1.2) 03/30/17 04:29 Estimated GFR > 60 ml/min 03/30/17 04:29 BUN/Creatinine Ratio 11 % 03/30/17 04:29 Glucose 201 mg/dL (65-100) H 03/30/17 04:29 Lactic Acid 1.20 mmol/L (0.7-2.0) 03/30/17 04:29 Calcium 8.9 mg/dL (8.4-10.2) 03/30/17 04:29 Magnesium 2.00 mg/dL (1.7-2.3) 03/27/17 22:58 Total Bilirubin 0.20 mg/dL (0.1-1.2) 03/30/17 04:29 AST 10 units/L (5-40) 03/30/17 04:29 ALT 10 units/L (7-56) 03/30/17 04:29 Alkaline Phosphatase 108 units/L (35-129) 03/30/17 04:29 Total Creatine Kinase 71 units/L (30-135) 03/27/17 22:58 CK-MB (CK-2) 2.7 ng/mL (0.0-4.0) 03/27/17 22:58 CK-MB (CK-2) Rel Index 3.8 (0-4) 03/27/17 22:58 Troponin T < 0.010 ng/mL (0.00-0.029) 03/27/17 22:58 Total Protein 6.6 g/dL (6.3-8.2) 03/30/17 04:29 Albumin 3.7 g/dL (3.9-5) L 03/30/17 04:29 Albumin/Globulin Ratio 1.3 % 03/30/17 04:29 Urine Color [place] (Yellow) 03/27/17 01:12 Urine Turbidity Clear (Clear) 03/27/17 01:12 Urine pH 5.0 (5.0-7.0) 03/27/17 01:12 Ur Specific [place] 1.027 (1.003-1.030) 03/27/17 01:12 Urine Protein 100 mg/dl mg/dL (Negative) 03/27/17 01:12 Urine Glucose (UA) 50 mg/dL (Negative) 03/27/17 01:12 Urine Ketones Tr mg/dL (Negative) 03/27/17 01:12 Urine Blood Neg (Negative) 03/27/17 01:12 Urine Nitrite Neg (Negative) 03/27/17 01:12 Urine Bilirubin Sm (Negative) 03/27/17 01:12 Urine Ictotest Negative (Negative) 03/27/17 01:12 Urine Urobilinogen < 2.0 mg/dL (<2.0) 03/27/17 01:12 Ur Leukocyte Esterase Tr (Negative) 03/27/17 01:12 Urine WBC (Auto) 31.0 /HPF (0.0-6.0) H 03/27/17 01:12 Urine RBC (Auto) 4.0 /HPF (0.0-6.0) 03/27/17 01:12 U Epithel Cells (Auto) 30.0 /HPF (0-13.0) H 03/27/17 01:12 Urine Bacteria (Auto) 1+ /HPF (Negative) 03/27/17 01:12 Calcium Oxalate Crystal 1+ 03/27/17 01:12 Hyaline Casts 7 /LPF 03/27/17 01:12 Urine Mucus 3+ /HPF 03/27/17 01:12 Urine Opiates Screen Presumptive negative 03/28/17 01:12 Urine Methadone Screen Presumptive positive 03/28/17 01:12 Ur Barbiturates Screen Presumptive negative 03/28/17 01:12 Ur Phencyclidine Scrn Presumptive positive 03/28/17 01:12 Ur Amphetamines Screen Presumptive negative 03/28/17 01:12 U Benzodiazepines Scrn Presumptive positive 03/28/17 01:12 Urine Cocaine Screen Presumptive positive 03/28/17 01:12 U Marijuana (THC) Screen Presumptive negative 03/28/17 01:12 Drugs of Abuse Note Disclamer 03/28/17 01:12 Plasma/Serum Alcohol < 0.01 % (0-0.07) 03/27/17 22:58 - Imaging and Cardiology CT scan - abdomen: image reviewed CT scan - chest: image reviewed MRI - head: image reviewed
[2017-03-31] MEDS: D5/0.45NS 1,000 ML IV SCH ×2 (00:09→13:56)
[2017-03-31] MEDS: LOVENOX SUB-Q SCH (00:13)
[2017-03-31] MEDS: XANAX PO SCH ×2 (00:47→09:57)
[2017-03-31] MEDS: SINEquan PO SCH (00:47)
[2017-03-31 08:50] LABS: Basophils % (Auto) 0.5 % (0.0-1.8); Eosinophils # (Auto) 0.1 K/mm3 (0.0-0.4); Eosinophils % (Auto) 1.4 % (0.0-4.3); Hematocrit 39.2 % (30.3-42.9); Hemoglobin 12.7 gm/dl (10.1-14.3); Lymphocytes # (Auto) 2.4 K/mm3 (1.2-5.4); Lymphocytes % (Auto) 43.2 % (13.4-35.0); Mean Corpuscular HGB Conc 32 % (30-34); Mean Corpuscular Hemoglobin 27 pg (28-32); Mean Corpuscular Volume 83 fl (79-97); Monocytes # (Auto) 0.4 K/mm3 (0.0-0.8); Monocytes % (Auto) 6.6 % (0.0-7.3); Platelet Count 339 K/mm3 (140-440); Red Cell Distribution Width 16.4 % (13.2-15.2)
[2017-03-31 09:15] LABS: Alanine Aminotransferase 10 units/L (7-56); Albumin 3.8 g/dL (3.9-5); BUN/Creatinine Ratio 19; Blood Urea Nitrogen 15 mg/dL (7-17); Calcium 9.1 mg/dL (8.4-10.2); Hemolysis Index 10
[2017-03-31] MEDS: NEURONTIN PO SCH ×2 (09:56→13:54)
[2017-03-31] MEDS: EFFEXOR XR PO SCH (10:00)
[2017-03-31] MEDS: cefTRIAXone 1 GM in NACL 0.9% 20 ML IV SCH (13:55)
--- NOTE | 2017-03-31 15:15 | Discharge Summary ---
Providers - Providers Date of Admission: 03/28/17 01:37 Date of discharge: 03/31/17 Attending physician: LUPILLO JOHANSEN 03/28/17 05:30 Consult to Physician [CONS] Routine Consulting Provider: YARELI BO Reason For Exam: breast ca on chemotherapy Place consult to:: Oncology/ Notified:: A.S. Phone number called:: [phone] Was contact made?: Yes If yes, spoke with:: LEO Thornton called:: 08:03 Comment:: JEFFREY NOTIFIED 03/28/17 05:53 Consult to Mental Health [CONS] Routine Reason For Exam: bipolar disorder, Polysubatance abuse Place consult to:: mental health Notified:: CARIN Phone number called:: [phone] Was contact made?: Yes If yes, spoke with:: CARIN Thornton called:: 10:20 Primary care physician: JIRA DEVELOPER Hospitalization Condition: Stable Disposition: - TO HOME OR SELFCARE - Discharge Diagnoses (1) UTI (urinary tract infection) Status: Acute Qualifiers: Urinary tract infection type: acute cystitis Comment: Treated with Rocephin IV for 3 days. Will follow-up with 7 more days of Levaquin. Patient completely asymptomatic. (2) Hypokalemia Status: Resolved (3) Bipolar 1 disorder Status: Acute Comment: Continue Wellbutrin follow with psychiatry. (4) Breast cancer in female Status: Acute Qualifiers: Breast location: upper outer quadrant of breast Estrogen receptor status: unspecified Laterality: right Qualified Code(s): C50.411 - Malignant neoplasm of upper-outer quadrant of right female breast Comment: Breast cancer in female scheduled to follow up with Dr. Hidalgo for surgical intervention. She is staging workup has been negative negative MRI of the brain negative CT scan of abdomen and pelvis. Prolonged discharge secondary to answer questions about staging and transferred to Dr. Hidalgo and or oncology. Took an additional 20 minutes. It was critical to her follow- up. (5) Mild renal insufficiency Status: Resolved Core Measure Documentation - Palliative Care Palliative Care/ Comfort Measures: Not Applicable - Core Measures Any of the following diagnoses?: none Exam - Constitutional Vitals: Temp Pulse Resp BP Pulse Ox 97.8 F 72 20 123/77 99 03/31/17 08:08 03/31/17 08:08 03/31/17 08:08 03/31/17 08:08 03/31/17 08:08 General appearance: Present: no acute distress, well-nourished - EENT Eyes: Present: PERRL ENT: hearing intact, clear oral mucosa - Neck Neck: Present: supple, normal ROM - Respiratory Respiratory effort: normal Respiratory: bilateral: CTA - Cardiovascular Heart Sounds: Present: S1 & S2. Absent: rub, click - Extremities Extremities: pulses symmetrical, No edema Peripheral Pulses: within normal limits - Abdominal General gastrointestinal: Present: soft, non-tender, non-distended, normal bowel sounds Female genitourinary: Present: normal - Integumentary Integumentary: Present: clear, warm, dry - Musculoskeletal Musculoskeletal: gait normal, strength equal bilaterally - Psychiatric Psychiatric: appropriate mood/affect, intact judgment & insight - Neurologic Neurologic: CNII-XII intact, moves all extremities Plan Activity: no restrictions Weight Bearing Status: Full Weight Bearing Diet: regular Special Instructions: smoking cessation, no heavy lifting Prescriptions: ALPRAZolam [Xanax TAB] 2 mg PO BID #60 tablet Doxepin HCl 100 mg PO HS #30 capsule Gabapentin [Neurontin] 800 mg PO TID #90 tablet hydrOXYzine PAMOATE [Vistaril] 50 mg PO TID #60 capsule Levofloxacin [Levaquin TAB] 500 mg PO QDAY #7 tablet oxyCODONE /ACETAMINOPHEN [Percocet 5/325 mg] 1 tab PO Q6H PRN #60 tablet PRN Reason: Pain, Moderate (4-6) Venlafaxine HCl [Venlafaxine ER] 150 mg PO QDAY #30 cap.er.24h
[2017-03-31 18:03] VITALS: BP 149/85
== END 2017-03-31 18:15 | disposition home or self-care (01) | DRG 598 ==
LOC: ED 22:21 → 3A 03-28 01:37
PROVIDERS: ADMIT Internal Medicine; ATTEND Internal Medicine
DX: C50.919 Malignant neoplasm of unspecified site of unspecified female breast (principal); N39.0 Urinary tract infection, site not specified; E87.2 Acidosis; N28.9 Disorder of kidney and ureter, unspecified; F19.10 Other psychoactive substance abuse, uncomplicated; R07.9 Chest pain, unspecified; I95.9 Hypotension, unspecified; F41.1 Generalized anxiety disorder; E87.6 Hypokalemia; F31.9 Bipolar disorder, unspecified; I10 Essential (primary) hypertension; Z79.899 Other long term (current) drug therapy
CPT/HCPCS: 36415; 70553; 71045; 71260; 74177; 80048; 80053; 80307; 80320; 81001; 82140; 82550; 82553; 82805; 83735; 84484; 85025; 85610; 85730; 87040; 87086; 93005; 93010; A9577; G0480; J0696; J1650; J7030; J7042; Q9967